=== PATIENT | male | born 1970 | race Caucasian/White ===

== ENCOUNTER 2020-03-05 07:28 | Outpatient (REF) | payer OTHER, SELFPAY ==
[2020-03-05 10:16] LABS: Alanine Aminotransferase 14 U/L (0-40); Aspartate Amino Transferase 15 U/L (5-37); Gamma Glutamyl Transpeptidase 19 U/L (11-51)
== END 2020-03-05 07:29 | disposition home or self-care (01) ==
LOC: HO.LAB 07:28
PROVIDERS: PCP Internal Medicine; Visit Provider Physician Assistant
DX: F11.20 Opioid dependence, uncomplicated (principal)
CPT/HCPCS: 82977; 84450; 84460

== ENCOUNTER 2020-11-01 06:26 | Outpatient (REF) | payer OTHER, SELFPAY ==
[2020-11-01 08:24] LABS: Alanine Aminotransferase 9 U/L (0-40); Aspartate Amino Transferase 13 U/L (5-37); Gamma Glutamyl Transpeptidase 15 U/L (11-51)
== END 2020-11-01 06:27 | disposition home or self-care (01) ==
LOC: HO.LAB 06:26
PROVIDERS: PCP Internal Medicine; Visit Provider Nurse Practitioner
DX: F11.20 Opioid dependence, uncomplicated (principal)
CPT/HCPCS: 36415; 82977; 84450; 84460

== ENCOUNTER 2021-07-14 06:10 | Outpatient (REF) | payer OTHER, SELFPAY ==
[2021-07-14 07:54] LABS: Alanine Aminotransferase 12 U/L (0-40); Aspartate Amino Transferase 14 U/L (5-37); Gamma Glutamyl Transpeptidase 18 U/L (11-51)
== END 2021-07-14 06:11 | disposition home or self-care (01) ==
LOC: HO.LAB 06:10
PROVIDERS: Family Medicine; PCP Internal Medicine; Visit Provider Registered Nurse
DX: F11.20 Opioid dependence, uncomplicated (principal)
CPT/HCPCS: 36415; 82977; 84450; 84460

== ENCOUNTER 2022-03-17 08:35 | Outpatient (REF) | payer OTHER, SELFPAY ==
[2022-03-17 09:51] LABS: Alanine Aminotransferase 17 U/L (0-40); Aspartate Amino Transferase 18 U/L (5-37)
[2022-03-17 10:02] LABS: Gamma Glutamyl Transpeptidase 17 U/L (11-51)
== END 2022-03-17 08:36 | disposition home or self-care (01) ==
LOC: HO.LAB 08:35
PROVIDERS: PCP Internal Medicine; Visit Provider Family Medicine
DX: F11.20 Opioid dependence, uncomplicated (principal)
CPT/HCPCS: 36415; 82977; 84450; 84460